=== PATIENT | female | born 1990 | race Caucasian/White ===

== ENCOUNTER 2020-03-30 17:17 | Observation (INO) ==
[2020-03-30 17:29] VITALS: BP 150/91
[2020-03-30] MEDS ORDERED: RINGER'S SOLUTION,LACTATED 1,000 ML IV ONE (18:04)
[2020-03-30 18:15] LABS: Random Urine Total Protein 11.8 mg/dL (0-12)
[2020-03-30 18:19] LABS: Cocaine Ur Negative (NEGATIVE); Urine Barbiturate Negative (NEGATIVE); Urine Benzodiazepines Negative (NEGATIVE); Urine Opiates Negative (NEGATIVE); Urine PCP Negative (NEGATIVE); Urine THC Negative (NEGATIVE)
--- NOTE | 2020-03-30 18:29 | HP ---
Chief Complaint - Chief Complaint Date of Service: 03/30/20 Time of Service: 18:16 Chief Complaint: Fall, vaginal pressure History of Present Illness: 29 year old at 34w 0d who presents to L&D reporting that she fell yesterday from 4 steps. She reports vaginal pressure, contractions q 10-15 mins while at work all day. She denies vb or lof. She does report vaginal discharge. She reports a headache, epigastric pain. Fetus is active. Medical History (Last Reviewed 03/30/20 @ 18:21 by Terese Weaver MD) Chronic bronchitis Genital herpes last outbreak several years ago Abnormal Pap smear of cervix ASCUS, repeat pap smear WNL, denies biopsies or procedures Molar Onset Date: ~2011 Surgical History: Surgical History (Last Reviewed 03/30/20 @ 18:21 by Terese Weaver MD) delivery due to maternal disorder (Resolved) failure to progress, GHTN during labor History of dental surgery History of dilation and curettage Onset Date: ~2011 molar Family History: Family History (Last Reviewed 03/30/20 @ 18:21 by Terese Weaver MD) Mother Mental health disorder Father No known problems Other No pertinent family history Social History: (Last Reviewed 03/30/20 @ 18:21 by Terese Weaver MD) Social History: Marital status: Single household members: significant other current occupational status: employed current occupation: food mobile driver Highest level of school completed/degree received: some college, no degree Service: No Tobacco: Smoking Status: Current every day smoker tobacco type: cigarettes Smoking cigarettes per day: 10 Years smoked: 14 Smoking pack-years: 7.00 Alcohol: alcohol intake: current details: none since +UPT Substance Use: substance use type: does not use Dietary Habits: caffeine: Yes Type: coffee Review Of Systems (GEN) - Review of Systems Generalized/Overall Review: Present: No Symptoms Reported EENTM: Present: No Symptoms Reported Respiratory: Present: No Symptoms Reported Cardiac: Present: No Symptoms Reported Abdominal: Present: Other - epigastric pain Genitourinary: Present: Other - vaginal discharge Musculoskeletal: Present: No Symptoms Reported Neurological: Present: No Symptoms Reported Skin: Present: No Symptoms Reported Immunizations: IMMUNIZATION HX Immunizations Up to Date Yes History of Influenza Vaccine No Hx Pneumococcal Vaccination No Allergies/Adverse Reactions: Allergies Allergy/AdvReac Type Severity Reaction Status Date / Time No Known Allergies Allergy Verified 03/24/20 08:41 Home Medications: HOME MEDICATIONS bupropion HCl 150 mg tablet,12 hr sustained-release 150 mg PO BID #60 ea 02/23/20 [Last Taken 03/30/20 10:00] Vits96/Iron Fum/Folic [ S] 1 tab PO DAILY 03/30/20 [Last Taken 03/30/20 10:00] Exam - Exam Vital Signs: Vital Signs - Last Taken Temp 36.7 C 03/30/20 17:28 Pulse 86 03/30/20 17:28 Resp 20 03/30/20 17:28 BP 150/91 H 03/30/20 17: Pulse Ox 99 03/30/20 17:28 Constitutional: Present: Alert, Oriented x3, Cooperative, No distress ENT Exam: Present: hearing grossly normal Breasts: Present: Exam deferred Respiratory: Present: lungs clear, normal breath sounds, no respiratory distress Cardiovascular/Chest: Present: regular rate, rhythm Abdomen: Present: soft, nontender, nondistended /Rectal: Present: Other - SSE: white vaginal discharge SVE: c losed/thick/posterior Extremity: Present: non-tender, no calf tenderness, lower extremity edema Skin Exam: Present: normal color, warm/dry, no cyanosis Neurologic: Present: alert, normal mood/affect, oriented x 3 Appearance: Present: appropriate appearance, appropriate insight, neat, no memory impairment Eye contact: Present: cooperative, good eye contact, normal speech Thoughts: Present: normal thought pattern, no apparent hallucination Assessment/Plan - Narrative Narrative: 29 year old at 34w 0d 1. s/p fall yesterday: NST reactive. However, the patient is having contractions so will observe overnight. Ultrasound in the morning to rule out placental abruption 2. Pre-eclampsia: the patient just ruled in for pre-eclampsia this admission. CBC/CMP pending. Will begin APT. Plan for NST on . Growth US tomorrow and also to assess AFV. Weekly pre-eclampsia labs. Steroids at 36 weeks 3. contractions: IVF bolus given. Cervix is closed. UC sent. Wet prep sent. Reassess cervical exam in an hour Admit for overnight observation - Assessment/Plan (1) 34 weeks gestation of Problem: Acute (2) Status post fall Problem: Acute (3) Pre-eclampsia Problem: Acute Qualifiers: Trimester: third trimester Qualified Code(s): O14.93 - Unspecified pre- eclampsia, third trimester (4) Rh(D) positive Problem: Acute (5) Smoker Problem: Acute (6) History of delivery Problem: Acute (7) Macrocytic anemia Problem: Acute (8) Normal Pap smear Problem: Acute
[2020-03-30 18:36] LABS: Hemoglobin 11.8 gm/dL (12.5-16.0); Mean Corpuscular Hgb Conc 34.7 g/dl (32-36); Mean Platelet Volume 9.5 fl (8-12.5); Platelet Count 169 K/mm3 (150-450); Red Blood Count 3.47 M/mm3 (4.2-5.4); Red Cell Distribution Width 13.4 % (11.5-14.0)
[2020-03-30 18:46] LABS: Total Cells Counted 100
[2020-03-30 18:51] LABS: Albumin * 2.5 gm/dl (3.4-5.0); Anion Gap 13.6 mmol/L (6.8-13.8); BUN/Creatinine Ratio 11.6 (9.0-21.6); Bilirubin, Total 0.4 mg/dL (0.0-1.1); Ca. Corrected For Albumin 10.3 mg/dL (8.4-10.2); Calcium * 9.4 mg/dL (7.9-10.9); Potassium 3.6 mmol/L (3.4-4.6); Total Protein 6.5 gm/dL (6.2-8.2)
[2020-03-30 19:30] LABS: Band 3 % (0-2.0); Eosinophil 2 % (0-3); Lymphocyte 13 % (20-51); Monocyte 7 % (0-9); Neutrophil 75 % (42-75); Neutrophil # 7.5 K/mm3 (1.3-6.0)
[2020-03-30 19:32] LABS: Anisocytosis 1+; Platelet Estimate Normal (NORMAL)
[2020-03-30] MEDS ORDERED: buPROPion HCL 150 MG TABLET.SA PO SCH (21:00)
[2020-03-30] MEDS ORDERED: CALCIUM CARBONATE 500 MG TAB.CHEW PO ONE (21:24)
[2020-03-30] MEDS ORDERED: ACETAMINOPHEN 500 MG TABLET PO ONE (21:31)
[2020-03-30 21:46] LABS: Urine Bilirubin Negative (NEGATIVE); Urine Blood Negative /ul (NEGATIVE); Urine Ketone Negative (NEGATIVE); Urine Nitrite Negative (NEGATIVE); Urine Protein Negative (NEGATIVE); Urine Urobilinogen Normal (NORMAL)
[2020-03-30 21:47] LABS: Urine Appearance Clear (CLEAR); Urine Bacteria 1+; Urine Color Yellow; Urine RBC None Seen /hpf (0-5); Urine WBC None Seen /hpf (0-5)
[2020-03-31] MEDS ORDERED: CALCIUM CARBONATE 500 MG TAB.CHEW PO ONE (05:28)
[2020-03-31] MEDS ORDERED: ACETAMINOPHEN 500 MG TABLET PO ONE (05:28)
[2020-03-31] MEDS ORDERED: PRENATAL VITS96/IRON FUM/FOLIC 1 TAB TABLET PO SCH (09:00)
--- NOTE | 2020-03-31 11:55 | PN ---
Subjective - Date and Time Seen Date: 03/31/20 Time: 07:30 Subjective Narrative: Patient without complaints. Contractions have resolved. She feels much better. Objective Objective Narrative: See vital signs - Review of Systems Generalized/Overall Review: Reports: No Symptoms Reported EENTM: Reports: No Symptoms Reported Respiratory: Reports: No Symptoms Reported Misc: All systems neg except as marked - Vitals Vitals: Last Vital Signs Temp 36.7 C 03/30/20 17:28 Pulse 86 03/30/20 17:28 Resp 20 03/30/20 17:28 BP 150/91 H 03/30/20 17:28 Pulse Ox 99 03/30/20 17:28 - Abnormal Lab Findings Abnormal Lab Findings: Abnormal Lab Results 03/30/20 03/30/20 03/30/20 Range/Units 17:48 18:30 18:30 RBC 3.47 L (4.2-5.4) M/mm3 Hgb 11.8 L (12.5-16.0) gm/dL Hct 34.0 L (37.0-47.0) % MCH 34.0 H (27-31) pg Band Neuts % (Manual) 3 H (0-2.0) % Lymphocytes % (Manual) 13 L (20-51) % Neutrophils # (Manual) 7.5 H (1.3-6.0) K/mm3 Lymphocytes # (Manual) 1.3 L (1.5-3.5) k/mm3 Carbon Dioxide 22.0 L (24-32.6) mmol/L Calcium Adj for Albumin 10.3 H (8.4-10.2) mg/dL Albumin 2.5 L (3.4-5.0) gm/dl Ur Epithelial Cells (0-5) /hpf Urine Bacteria (NONE) Ur Random Creatinine 33.3 L (60-200) mg/dL U [place] Prot/Creat Ratio 354 H (0-199) mg/gm Urine Comment 03/30/20 Range/Units 21:34 RBC (4.2-5.4) M/mm3 Hgb (12.5-16.0) gm/dL Hct (37.0-47.0) % MCH (27-31) pg Band Neuts % (Manual) (0-2.0) % Lymphocytes % (Manual) (20-51) % Neutrophils # (Manual) (1.3-6.0) K/mm3 Lymphocytes # (Manual) (1.5-3.5) k/mm3 Carbon Dioxide (24-32.6) mmol/L Calcium Adj for Albumin (8.4-10.2) mg/dL Albumin (3.4-5.0) gm/dl Ur Epithelial Cells 5-10 H (0-5) /hpf Urine Bacteria 1+ H (NONE) Ur Random Creatinine (60-200) mg/dL U [place] Prot/Creat Ratio (0-199) mg/gm Urine Comment Culture ordered L - Exam Constitutional: Present: Alert, Oriented x3, Cooperative, No distress ENT Exam: Present: hearing grossly normal Neck: Present: normal inspection Abdomen: Present: soft, nontender, nondistended Extremity: Present: non-tender, no calf tenderness Skin Exam: Present: normal color, warm/dry, no cyanosis Neurologic: Present: alert, normal mood/affect, oriented x 3 Appearance: Present: appropriate appearance, appropriate insight, neat, no memory impairment Eye contact: Present: cooperative, good eye contact, normal speech Thoughts: Present: normal thought pattern Assessment/Plan Plan Narrative: 29 year old at 34w 1d admitted overnight due to contractions s/p fall. Contractions have resolved. No vaginal bleeding. Ultrasound negative for placental abruption. Growth is concordant. AFV is normal Abruption precautions given Follow-up for NST tomorrow or sooner for any other concerns - Problems/Diagnosis (1) 34 weeks gestation of Problem: Acute (2) Status post fall Problem: Acute (3) Pre-eclampsia Problem: Acute Qualifiers: Trimester: third trimester Qualified Code(s): O14.93 - Unspecified pre- eclampsia, third trimester (4) Rh(D) positive Problem: Acute (5) Smoker Problem: Acute (6) History of delivery Problem: Acute (7) Macrocytic anemia Problem: Acute (8) Normal Pap smear Problem: Acute
--- NOTE | 2020-03-31 11:58 | DS ---
(1) 34 weeks gestation of Problem: Acute (2) Status post fall Problem: Acute (3) Pre-eclampsia Problem: Acute Qualifiers: Trimester: third trimester Qualified Code(s): O14.93 - Unspecified pre-ecl ampsia, third trimester (4) Rh(D) positive Problem: Acute (5) Smoker Problem: Acute (6) History of delivery Problem: Acute (7) Macrocytic anemia Problem: Acute (8) Normal Pap smear Problem: Acute Date of Discharge:: 03/31/20 Hospital Course: The patient was admitted overnight due to contractions s/p a fall the day prior. She had an ultrasound to rule out abruption which was negative. Contractions have resolved and she is feeling much improved. Procedures Performed: none Results and Findings: Pending Mircobiology Results 03/30/20 17:40 Urine,Clean Catch Urine Culture - Preliminary No Growth Lab Pending Results 03/30/20 17:40: Urine Opiates Screen Negative, Barbiturate Screen Negative, Ur Phencyclidine Scrn Negative, Urine Amphetamine Negative, U Benzodiazepines Scrn Negative, Urine Cocaine Screen Negative, Urine Marijuana (THC) Negative 03/30/20 17:48: Ur Random Creatinine 33.3 L, U Random Total Protein 11.8, U [place] Prot/Creat Ratio 354 H 03/30/20 18:30: WBC 10.0, RBC 3.47 L, Hgb 11.8 L, Hct 34.0 L, MCV 98.0, MCH 34.0 H, MCHC 34.7, RDW 13.4, Plt Count 169, MPV 9.5, Neutrophils % (Manual) 75, Band Neuts % (Manual) 3 H, Lymphocytes % (Manual) 13 L, Monocytes % (Manual) 7, Eosinophils % (Manual) 2, Neutrophils # (Manual) 7.5 H, Lymphocytes # (Manual) 1.3 L, Monocytes # (Manual) 0.7, Eosinophils # (Manual) 0.2, Toxic Vacuolation Trace, Platelet Estimate Normal, Anisocytosis 1+ 03/30/20 18:30: Sodium 138, Plasma Sodium 138, Potassium 3.6, Chloride 106, Carbon Dioxide 22.0 L, Anion Gap 13.6, BUN 8, Creatinine 0.69, Est GFR (Non-Af Amer) 106, BUN/Creatinine Ratio 11.6, Random Glucose 83, Calcium 9.4, Calcium Adj for Albumin 10.3 H, Total Bilirubin 0.4, AST 18, ALT 20, Alkaline Phosphatase 79, Total Protein 6.5, Albumin 2.5 L 03/30/20 21:34: Urine Color Yellow, Urine Appearance Clear, Urine pH 7.0, Ur Specific [place] 1.010, Urine Protein Negative, Urine Glucose (UA) Negative, Urine Ketones Negative, Urine Blood Negative, Urine Nitrate Negative, Urine Bilirubin Negative, Urine Urobilinogen Normal, Ur Leukocyte Esterase Negative, Urine RBC None seen, Urine WBC None seen, Ur Epithelial Cells 5-10 H, Urine Bacteria 1+ H, Urine Comment Culture ordered L Discharge Location: Home Disposition: Home self-care Condition: Good Discharge Activity: Activity as tolerated, Other - Off work until delivery Discharge Diet: General/regular food Referrals: Carlie Interiano FNP [Primary Care Provider] - Problem Oriented Discharge Instructions to Patient/Family: Labor and Information, [id number], Placental Abruption Additional Patient Instructions (free text): Vanessa please return to [facility] tomorrow at 10:00 AM for an NST. Rest and drink plenty of fluids. Please call [facility] at [phone] or [facility] with any questions or concerns. Complete Home Medications List: Complete Home Medication List: bupropion HCl 150 mg tablet,12 hr sustained-release 150 mg PO BID #60 ea 02/23/20 Vits96/Iron Fum/Folic [ S] 1 tab PO DAILY 03/30/20
== END 2020-03-31 09:10 | disposition home or self-care (01) ==
LOC: OBCLINIC 17:17 → OB 17:17
PROVIDERS: ADMIT Obstetrics & Gynecology; ATTEND Obstetrics & Gynecology
DX: Z86.19 Personal history of other infectious and parasitic diseases; W19.XXXA Unspecified fall, initial encounter; N85.8 Other specified noninflammatory disorders of uterus; D53.9 Nutritional anemia, unspecified; Z3A.34 34 weeks gestation of pregnancy; Z72.0 Tobacco use; O14.93 Unspecified pre-eclampsia, third trimester

== ENCOUNTER 2020-04-21 04:32 | Inpatient (IN) ==
[2020-04-21] MEDS ORDERED: RINGER'S SOLUTION,LACTATED 1,000 ML IV ONE (05:03)
[2020-04-21] MEDS ORDERED: ceFAZolin SODIUM 1 GM VIAL ONE (06:42)
[2020-04-21] MEDS ORDERED: RINGER'S SOLUTION,LACTATED 1,000 ML IV PRN (07:08)
[2020-04-21] MEDS ORDERED: Oxytocin/Ringers Lactate 20 UNITS/1,000 ML BAG IV ONE (07:08)
[2020-04-21] MEDS ORDERED: SIMETHICONE 80 MG TAB.CHEW PO PRN (07:09)
[2020-04-21] MEDS ORDERED: BISACODYL 10 MG SUPP.RECT RC PRN (07:09)
[2020-04-21] MEDS ORDERED: SENNOSIDES 8.6 MG TABLET PO PRN (07:09)
[2020-04-21] MEDS ORDERED: ONDANSETRON HCL/PF 2 MG/ML VIAL IV PRN (07:09)
[2020-04-21] MEDS ORDERED: diphenhydrAMINE HCL 25 MG CAPSULE PO PRN (07:09)
[2020-04-21] MEDS ORDERED: BUPIVACAINE HCL/EPINEPHRINE 50 ML VIAL IJ ONE (07:11)
[2020-04-21] MEDS ORDERED: EPINEPHrine 1 MG/ML AMPUL ONE (07:11)
[2020-04-21] MEDS ORDERED: ONDANSETRON HCL/PF 2 MG/ML VIAL ONE (08:13)
[2020-04-21] MEDS ORDERED: MIDAZOLAM HCL/PF 1 MG/ML VIAL ONE (08:23)
[2020-04-21] MEDS ORDERED: fentaNYL CITRATE/PF 50 MCG/ML AMPUL ONE ×2 (08:23→09:09)
--- NOTE | 2020-04-21 09:12 | OR ---
Operative Report - Dictated Report Narrative: Date of delivery: 04/21/2020 Time of delivery: 08 Gender: male weight: 3443 grams APGARS: 9 Preoperative diagnosis: IUP at 37w 1d, pre-eclampsia, history of delivery Postoperative diagnosis: same Procedure: Abdominal scar revision, repeat delivery Surgeon: Dr. Weaver Anesthesia: Spinal Anesthesiologist: Giorgi Saini CRNA Description of the procedure: The patient was taken to the operating room where spinal anesthesia was induced. She was then prepped and draped in the supine position in the standard surgical fashion. Attention was then turned to the abdomen. A scar revision was performed. The incision was carried through the subcutaneous tissue. The fascia was incised in the midline. A defect in the fascia was noted on the left side of the incision consistent with an incisional hernia. The fascia was grasped with Kurt clamps and tented up. The fascia was dissected off the underlying rectus muscles. The peritoneum was entered bluntly. A large Jeff retractor was placed in the abdomen. The uterus was incised in a low transverse fashion. The uterine incision was extended bluntly. The membranes were ruptured and clear fluid was noted. The head was delivered without difficulty. A loose nuchal cord was reduced. The rest of the infant was delivered atraumatically and handed off to the attending pediatric staff. The placenta was delivered by expression, intact, and without difficulty. The uterus was cleared of all clots and debris. The uterine incision was closed with 2 layers of 0-vicryl. The second layer was an imbricating layer. Two additional figure of eight sutures were placed for additional hemostasis. Hemostasis was adequate. The subfascial tissues and the rectus muscles were inspected for hemostasis. The fascia was closed with 1-0 vicryl. The subcutaneous tissue was irrigated and made hemostatic. Two figure of eight sutures were placed on the left side of the subcutaneous tissue for hemostasis. A 2-0 vicryl suture was used on the subcutaneous tissue. The subcutaneous tissue's space was closed with 2-0 vicryl. The skin was closed with 3-0 monocryl on a Hosea needle. An additional suture was placed across the midline of the incision for additional hemostasis. [place] trevino was applied to the incision. The incision was covered with a dressing. All sponge, lap, and needle counts were correct. The patient tolerated the procedure well. She was transferred to the recovery room in stable condition. EBL: 600 mL Complications: none Specimens: cord blood, placenta History for MU Definition: * The number of deliveries resulting in a live the patient experienced prior to current hospitalization * The previous delivery of live twins or any live multiple gestation is considered one live event. *If primagravida or nulliparous is documented select zero for the number of previous live births. Live Events: 1
--- NOTE | 2020-04-21 09:26 | ANES ---
Post Anesthesia Discharge - Transfer of Care Transfer of Care handoff given to nurse: Yes - Discharge from PACU Discharge from PACU when meets criteria: Yes
--- NOTE | 2020-04-21 09:26 | ANES ---
Anesthesia Pre Procedure Eval Vitals/Labs: Last Vital Signs Temp 36.4 C 04/21/20 09:00 Pulse 87 04/21/20 09:20 Resp 16 04/21/20 09:20 BP 139/85 04/21/20 09:20 Pulse Ox 100 04/21/20 09:20 HOME MEDICATIONS bupropion HCl 150 mg tablet,12 hr sustained-release 150 mg PO BID #60 ea 02/23/20 [Last Taken 03/30/20 10:00] Vits96/Iron Fum/Folic [ S] 1 tab PO DAILY 03/30/20 [Last Taken 03/30/20 10:00] valacyclovir 1 gram tablet 1,000 mg PO DAILY #30 tab 04/01/20 [Last Taken Unknow n] Allergies/Adverse Reactions: Allergies Allergy/AdvReac Type Severity Reaction Status Date / Time No Known Allergies Allergy Verified 04/21/20 04:38 - Planned Procedure Planned Procedure: Repeat Section Medication List Reviewed:: Yes Allergies Verified: Yes Medical History (Last Reviewed 04/21/20 @ 09:25 by Jovanny Saini CRNA) Chronic bronchitis Genital herpes last outbreak several years ago Pre-eclampsia Onset Date: ~03/2020 Abnormal Pap smear of cervix ASCUS, repeat pap smear WNL, denies biopsies or procedures Molar Onset Date: ~2011 Surgical History (Last Reviewed 04/21/20 @ 09:25 by Jovanny Saini CRNA) delivery due to maternal disorder (Resolved) failure to progress, GHTN during labor History of dental surgery History of dilation and curettage Onset Date: ~2011 molar Family History (Last Reviewed 04/21/20 @ 09:25 by Jovanny Saini CRNA) Mother Mental health disorder Father No known problems Other No pertinent family history - Family Anesthesia History Family History:: no untoward family reactions to anesthesia - Airway/Neck/Teeth Within Normal Limits:: Yes Teeth Condition: intact Neck Exam: full range of motion Mallampatti Score: 2 Thyromental (T-M) distance: > 6 cm Mandibulo Hyoid distance: > 3 cm - Respiratory Respiratory Physical: lungs clear Smoking Status: Former smoker Sleep Apnea currently treated: No Sleep Apnea by current assessment: No - Cardiovascular Tolerate Activity: Good Heart Sounds: S1 & S2, Regular - Gastrointestinal NPO since: MN - Anesthesia Assessment and Plan ASA Class: PS, II Anesthesia Type Plan: Spinal - Bilat tap block Planned difficult intubation/equipment available: No
--- NOTE | 2020-04-21 09:31 | ANES ---
Anesthesia Procedure Note Procedure Note: ANESTHESIA PROCEDURE NOTE Date of procedure: 04/21/2020. Time of procedure: 904. Performed by: Giorgi Saini CRNA Director Of Primary: Servando Mera RN . Preprocedure diagnosis: Status post section. Post procedure diagnosis: Same. Procedure: Ultrasound-guided bilateral tap Indications: Postoperative analgesia. Findings: Patient brought to PACU and placed in a supine position. The patient's right abdominal wall was prepped with ChloraPrep. Ultrasound utilized to identify the fascial layer between the internal oblique and transabdominus muscles. 20-gauge 4 inch regional block needle was advanced under ultrasound guidance until tip of needle was placed just distally to fascial layer. 20 mL of 0.25% Marcaine with epinephrine 1-200,000 was injected with adequate spread of local anesthesia noted. Procedure was then repeated on patient's left side. EBL: Minimal. Fluids: N/A. Specimen: N/A. Post procedure condition: The patient tolerated the procedure well. No complications were noted. Thank you for this consultation Giorgi Saini CRNA
--- NOTE | 2020-04-21 09:34 | ANES ---
Post Anesthesia Assessment - Vital Signs Vitals: Last Vital Signs Temp 36.4 C 04/21/20 09:30 Pulse 86 04/21/20 09:30 Resp 13 04/21/20 09:30 BP 128/72 04/21/20 09:30 Pulse Ox 99 04/21/20 09:30 Airway Patency: Normal - Mental Status Level Of Consciousness: Awake - Pain Level Pain Score: 2 - N/V Assessment Nausea/Vomiting Presence: None Dehydration:: No
[2020-04-21] MEDS: KETOROLAC TROMETHAMINE 30 MG/ML VIAL IV PRN ×3 (09:51→22:13)
[2020-04-21] MEDS: HYDROcodone/ACETAMINOPHEN 1 EACH TABLET PO PRN ×3 (11:17→19:04)
[2020-04-21] MEDS: DOCUSATE SODIUM 100 MG CAPSULE PO SCH ×2 (11:18→20:19)
[2020-04-22] MEDS: HYDROcodone/ACETAMINOPHEN 1 EACH TABLET PO PRN ×7 (00:03→23:56)
[2020-04-22] MEDS: IBUPROFEN 800 MG TABLET PO PRN ×4 (04:03→22:25)
[2020-04-22] MEDS ORDERED: ceFAZolin SODIUM 1 GM VIAL IV PRN (06:00)
[2020-04-22] MEDS: DOCUSATE SODIUM 100 MG CAPSULE PO SCH ×2 (08:26→22:26)
--- NOTE | 2020-04-22 08:27 | PN ---
Subjective - Date and Time Seen Date: 04/22/20 Time: 08:25 Subjective Narrative: Patient without complaints Objective Objective Narrative: See vital signs - Review of Systems Generalized/Overall Review: Reports: No Symptoms Reported Misc: All systems neg except as marked - Vitals Vitals: Last Vital Signs Temp 36.2 C 04/22/20 06:40 Pulse 75 04/22/20 06:40 Resp 18 04/22/20 06:40 BP 134/76 04/22/20 06:40 Pulse Ox 95 04/22/20 06:40 - Exam Constitutional: Present: Alert, Oriented x3, Cooperative, No distress ENT Exam: Present: hearing grossly normal Neck: Present: normal inspection Abdomen: Present: soft, nontender, nondistended - dressing c/d/i Extremity: Present: non-tender, no calf tenderness Skin Exam: Present: normal color, warm/dry, no cyanosis Neurologic: Present: alert, normal mood/affect, oriented x 3 Appearance: Present: appropriate appearance, appropriate insight, neat, no memory impairment Eye contact: Present: cooperative, good eye contact, normal speech Thoughts: Present: normal thought pattern Cauti Physician Documentation - Urinary Catheter Management Urethral (Ford) Urethral Indwelling: No Date of Insertion: 04/21/20 Time of Insertion: 07:45 Date of Removal: 04/21/20 Time of Removal: 20:30 Assessment/Plan Plan Narrative: POD 1 s/p repeat delivery with abdominal scar revision Doing well Discharge POD 2 or 3 depending on patient's preference
[2020-04-23] MEDS: HYDROcodone/ACETAMINOPHEN 1 EACH TABLET PO PRN ×6 (03:48→20:57)
[2020-04-23] MEDS: IBUPROFEN 800 MG TABLET PO PRN ×3 (06:41→19:54)
--- NOTE | 2020-04-23 08:05 | PN ---
Subjective - Date and Time Seen Date: 04/23/20 Time: 08:03 Subjective Narrative: Patient without complaints Objective Objective Narrative: See vital signs - Review of Systems Generalized/Overall Review: Reports: No Symptoms Reported Misc: All systems neg except as marked - Vitals Vitals: Last Vital Signs Temp 37.2 C 04/23/20 06:45 Pulse 80 04/23/20 06:45 Resp 16 04/23/20 06:45 BP 134/76 04/23/20 06:45 Pulse Ox 98 04/23/20 06:45 - Exam Constitutional: Present: Alert, Oriented x3, Cooperative, No distress ENT Exam: Present: hearing grossly normal Abdomen: Present: soft, nontender, nondistended - incision c/d/i, hematoma stable Extremity: Present: non-tender, no calf tenderness Skin Exam: Present: normal color, warm/dry, no cyanosis Neurologic: Present: alert, normal mood/affect, oriented x 3 Appearance: Present: appropriate appearance, appropriate insight, neat, no memory impairment Eye contact: Present: cooperative, good eye contact, normal speech Thoughts: Present: normal thought pattern Cauti Physician Documentation - Urinary Catheter Management Urethral (Ford) Urethral Indwelling: No Date of Insertion: 04/21/20 Time of Insertion: 07:45 Date of Removal: 04/21/20 Time of Removal: 20:30 Assessment/Plan - Problems/Diagnosis (1) Hematoma Problem: Acute (2) 39 weeks gestation of Problem: Acute (3) Delivery by section Problem: Acute
--- NOTE | 2020-04-23 08:09 | DS ---
OB Discharge Summary (1) Hematoma Status: Acute (2) 39 weeks gestation of Status: Acute (3) Delivery by section Status: Acute Delivery Date: 04/21/20 Delivery Time: 08:03 :: 3 Para:: 2 Gestational weeks:: 37 Gestational days:: 1 Intrapartum Procedures: Secondary Section, Delivery-Low Transverse, Anesthesia - Spinal Procedures: None Discharge Diagnosis: Term -Delivered, Other - hematoma - Discharge Information Date of Discharge: 04/23/20 Hospital Course: Patient presented for a repeat delivery at 37 weeks for pre-eclampsia. delivery was uncomplicated. The patient developed a hematoma to the right of the rectus muscles that has not expanded. course was other mclean uncomplicated. Discharge Location: Home Disposition: Home self-care Referrals: Carlie Interiano FNP [Primary Care Provider] - Activity on Discharge:: Activity as tolerated, Pelvic Rest Discharge Diet: General/regular food Prescriptions (Any new or edited meds): HYDROcodone/ACETAMINOPHEN [[place] 5-325] 1 ea PO Q6H PRN 6 Days #14 tab PRN Reason: Moderate Pain (Pain Scale 4-6) Transmission Status: Received by [facility] #[id number] Complete Home Medications List: Complete Home Medication List: bupropion HCl 150 mg tablet,12 hr sustained-release 150 mg PO BID #60 ea 02/23/20 Vits96/Iron Fum/Folic [ S] 1 tab PO DAILY 03/30/20 HYDROcodone/ACETAMINOPHEN [[place] 5-325] 1 ea PO Q6H PRN 6 Days #14 tab 04/22/20 - Plan Discharge to:: Home Comment:: Routine Discharge Instructions Follow up in office in:: 3-4 weeks - [place] Information Weight (Grams): 3,443 Sex: Male Score 1 min: 9 Score 5 min: 9 Infant Complications: None
[2020-04-23] MEDS: DOCUSATE SODIUM 100 MG CAPSULE PO SCH ×2 (08:16→21:17)
[2020-04-23] MEDS: AMOX TR/POTASSIUM CLAVULANATE 875 MG TABLET PO SCH ×2 (09:40→21:19)
[2020-04-23] MEDS ORDERED: CALCIUM CARBONATE 500 MG TAB.CHEW PO PRN (18:50)
[2020-04-23] MEDS: buPROPion HCL 150 MG TABLET.SA PO SCH (21:16)
[2020-04-24] MEDS: IBUPROFEN 800 MG TABLET PO PRN ×3 (03:12→15:20)
[2020-04-24] MEDS: HYDROcodone/ACETAMINOPHEN 1 EACH TABLET PO PRN ×5 (03:12→18:41)
[2020-04-24] MEDS: AMOX TR/POTASSIUM CLAVULANATE 875 MG TABLET PO SCH (08:24)
[2020-04-24] MEDS: DOCUSATE SODIUM 100 MG CAPSULE PO SCH (08:24)
[2020-04-24] MEDS: buPROPion HCL 150 MG TABLET.SA PO SCH (08:25)
--- NOTE | 2020-04-24 08:45 | PN ---
Subjective - Date and Time Seen Date: 04/24/20 Time: 08:43 Subjective Narrative: Patient without complaints Objective Objective Narrative: See vital signs - Review of Systems Generalized/Overall Review: Reports: No Symptoms Reported Misc: All systems neg except as marked - Vitals Vitals: Last Vital Signs Temp 36.5 C 04/24/20 08:40 Pulse 80 04/24/20 08:40 Resp 20 04/24/20 08:40 BP 138/86 04/24/20 08:40 Pulse Ox 97 04/24/20 08:40 - Exam Constitutional: Present: Alert, Oriented x3, Cooperative, No distress ENT Exam: Present: hearing grossly normal Neck: Present: normal inspection Abdomen: Present: soft, nontender, nondistended - hematoma visible now, incision c/d/i /Rectal: Present: Exam deferred Extremity: Present: non-tender, no calf tenderness Skin Exam: Present: normal color, warm/dry, no cyanosis Neurologic: Present: alert, normal mood/affect, oriented x 3 Appearance: Present: appropriate appearance, appropriate insight, neat, no memory impairment Eye contact: Present: cooperative, good eye contact, normal speech Thoughts: Present: normal thought pattern Cauti Physician Documentation - Urinary Catheter Management Urethral (Ford) Urethral Indwelling: No Date of Insertion: 04/21/20 Time of Insertion: 07:45 Date of Removal: 04/21/20 Time of Removal: 20:30 Assessment/Plan Plan Narrative: POD 3 s/p repeat delivery Doing well Discharge today - Problems/Diagnosis (1) Hematoma Problem: Acute (2) 39 weeks gestation of Problem: Acute (3) Delivery by section Problem: Acute
--- NOTE | 2020-04-24 08:45 | DS ---
OB Discharge Summary (1) Hematoma Status: Acute (2) 39 weeks gestation of Status: Acute (3) Delivery by section Status: Acute Delivery Date: 04/21/20 Delivery Time: 08:03 :: 3 Para:: 2 Gestational weeks:: 37 Gestational days:: 1 Intrapartum Procedures: Secondary Section, Delivery-Low Transverse, Anesthesia - Spinal Procedures: None /OP Complications: Other - hematoma Discharge Diagnosis: Term -Delivered, Preeclampsia mild/severe - Discharge Information Date of Discharge: 04/24/20 Hospital Course: Patient presented for a repeat delivery at 37 weeks for pre-eclampsia. delivery was uncomplicated. The patient developed a hematoma to the right of the rectus muscles that has not expanded. course was otherwise uncomplicated. Discharge Location: Home Disposition: Home self-care Referrals: Carlie Interiano FNP [Primary Care Provider] - Activity on Discharge:: Activity as tolerated, Pelvic Rest Discharge Diet: General/regular food Additional Patient Instructions (free text): Vanessa your four week post check up is on May 20 at 9:00 AM with . Rodolfo's follow up appointment is on 04/26/20 at 12:45 PM with . Prescriptions (Any new or edited meds): HYDROcodone/ACETAMINOPHEN [[place] 5-325] 1 ea PO Q6H PRN 6 Days #14 tab PRN Reason: Moderate Pain (Pain Scale 4-6) Transmission Status: Received by [facility] #[id number] Complete Home Medications List: Complete Home Medication List: bupropion HCl 150 mg tablet,12 hr sustained-release 150 mg PO BID #60 ea 02/23/20 Vits96/Iron Fum/Folic [ S] 1 tab PO DAILY 03/30/20 HYDROcodone/ACETAMINOPHEN [[place] 5-325] 1 ea PO Q6H PRN 6 Days #14 tab 04/22/20 amoxicillin 875 mg-potassium clavulanate 125 mg tablet 1 tab PO Q12H 10 Days #20 tab 04/23/20 - Plan Discharge to:: Home Comment:: Routine Discharge Instructions Follow up in office in:: 3-4 weeks - Information Weight (Grams): 3,443 Infant Sex: Male Score 1 min: 9 Score 5 min: 9 Complications: None
[2020-04-24 20:07] VITALS: BP 134/84
== END 2020-04-24 19:40 | disposition home or self-care (01) | DRG 788 ==
LOC: OB 04:32
PROVIDERS: ADMIT Obstetrics & Gynecology; ATTEND Obstetrics & Gynecology